=== PATIENT | female | born 1990 | race Caucasian/White ===

== ENCOUNTER 2016-05-09 16:13 | Inpatient (IN) | payer OTHER ==
[2016-05-22] MEDS ORDERED: LIDOCAINE 1% (PRES FREE) 30 ML VIAL ONE (07:38)
[2016-05-22] MEDS ORDERED: IV START KIT ONE (07:38)
[2016-05-22] MEDS ORDERED: MINERAL OIL 25 ML BOT ONE (07:38)
[2016-05-22] MEDS ORDERED: LIDOCAINE Viscous 2% 15 ML UDCUP ONE (07:38)
[2016-05-22] MEDS ORDERED: OXYTOCIN 10 UNITS/ML VIAL ONE (07:38)
[2016-05-22] MEDS ORDERED: OXYTOCIN IN LR 500 ML IV ONE (07:38)
[2016-05-22] MEDS ORDERED: LACTATED RINGERS 1,000 ML ONE (07:38)
[2016-05-22] MEDS ORDERED: PUMP TUBING ONE (07:38)
[2016-05-22] MEDS ORDERED: MISOPROSTOL 25 MCG TABLET SL ONE (07:43)
[2016-05-22 08:28] VITALS: BMI 29.8
[2016-05-22 08:29] LABS: HEMATOCRIT 38.3 % (37.0-47.0); HEMOGLOBIN 13.2 gm/l (12.0-16.0); MEAN CELL VOLUME 93.6 fl (81.0-99.0); MEAN CORPUSCULAR HEMOGLOBIN 32.3 pg (27.0-31.0); MEAN CORPUSCULAR HGB CONC 34.5 g/dl (33.0-37.0); RED CELL DISTRIBUTION WIDTH 13.4 % (11.5-14.5)
--- NOTE | 2016-05-22 09:32 | PCMAN ---
OB Admission Note - History : 1 Term: 0 : 0 Abortions (S&E): 0 Livin Gestational Age (weeks): 41 Days (#/7): 6 Admit Cervical Dilation:: 3.5 Admit Cervical Effacement (%):: 50 Admit Station:: -2 Admit Presentaton:: vertex Membrane Status: Intact Contractions: No Heart Rate:: 130 (moderate variability, pos accels, no decels) Status:: Cat 1 EFW:: 8lbs Summary of Course:: Mihir is a 25 yo presenting today at 41w6d for IOL for post dates Her dating is by 10w6d US that was consistent with her unsure LMP. SHe is supported by her mother and her partner Edward Initial weight was 145 with initial BMI 24.1. TWG this was 29 lbs. This was complicated by: Smoking 5-7 cigarettes a day throughout the as well as marijuana use. Mihir described using marijuana at 15 weeks and was counseled to the risks. A UDS at 28 weeks was positive for MJ use and a UDS at 37 weeks was negative for all substances. Pneumonia at 13 weeks. At her 20 wk anatomy scan a complete placenta previa was noted. Follow up scans at 28 weeks and 36 weeks report that this has resolved completely, with last documented location posterior and 6.4cm from the cervical os. 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 KATHARINA at [id number] was 11.4cm GBS positive at 36 weeks PMH: Asthma - occasionally uses inhaler, last use was during bout of Pneumonia. Rh negative status OB Hx: non-contributory Medications: vits, last dose last night Allergies: NKDA - Labs Blood Type: O (-) negative Rubella Status: Immune GBS Status: Positive Abnormal Labs: None, Urine Toxicology Positive, Other Other Labs:: UDS at 28 wks pos for marijuana UDS neg at 37 wks - Review of Systems Complete ROS is negative. She denies, LOF, contractions and vaginal bleeding. - Physical Exam Psych/Mental Status: Mood/Affect Appropriate, Judgment/Insight Intact Neurological: Grossly Intact, Alert, Oriented x 4 HEENT: Atraumatic Lungs: Clear to Auscultation Bilaterally, Normal Air Movement Cardiovascular: Regular Rate and Rhythm, Normal S1, Normal S2 Abdomen: Other (EFW 8lbs, back on maternal right, vertex confirmed with US.) Genitourinary: Normal Female Genitalia Rectal Exam: Deferred Extremities: Full ROM, Normal Pulses Skin: Normal Color - Problems (1) Post term at 41 weeks gestation Status: Acute Code: O48.0 Assessment/Plan: A: 25yo at 41w6d Not in labor Fetus Cat 1 Membranes Intact Maternal smoking Hx marijuana use GBS positive Asthma Pilonidal cyst Painting score 7 P: Admit for IOL IV access obtained for PCN prophylaxis CBC, RPR (per CDC guidelines), repeat UDS Pt desires unmedicated . Discussed options of initiating labor with Pitocin or with misoprostol. Pt desires to try one round of miso followed by Pitocin augmentaion if necessary. Plans to order breakfast and initiate 25mcg SL miso. Will use ambulation, position changes, ball to stimulate labor contracions. PCN prophylaxis to be initiated at the onset of active labor or SROM. Recheck in 4 hours or as clinically indicated.
[2016-05-22 12:48] LABS: AMPHETAMINES/METHAMPHETAMINES NEGATIVE (NEGATIVE); COCAINE NEGATIVE (NEGATIVE); MARIJUANA NEGATIVE (NEGATIVE); METHADONE NEGATIVE (NEGATIVE); OPIATES NEGATIVE (NEGATIVE); TRICYCLIC ANTIDEPRESSANTS NEGATIVE (NEGATIVE)
[2016-05-22] MEDS ORDERED: OXYTOCIN IN LR 500 ML IV PRN (13:27)
[2016-05-22] MEDS ORDERED: LACTATED RINGERS 1,000 ML IV SCH (13:30)
--- NOTE | 2016-05-22 13:37 | PDOC36 ---
Provider Note Subject: Labor Progress Note Note: S: Mihir has not been feeling the contractions that have registered on the monitor. She is eager for labor to kick in. She is hungry and has just ordered lunch O: VS BP 104/71 P85 RR18 T36.6C BSL 130 moderate variablilty, pos accels, neg decels Ctx q 2-6 mins, mild to moderate by palpation, lasting 60-120 sec SVE 4/75%/-2 Painting Score 8 A: undelivered IUP at 41w6d IOL for post-dates GBS pos Intact membranes Fetus Cat 1 Not in labor Appropriate for oxytocin induction P: Mihir will eat lunch and then agrees to begin oxytocin induction of labor Oxytocin administration per protocol until adequate labor pattern established Will begin PCN prophylaxis with ROM or active labor cEFM per protocol PO hydration Continued ambulation and distraction while in latent labor Recheck in 4 hours or when clinically indicated Anticipate active labor and
[2016-05-22] MEDS ORDERED: PENICILLIN G POTASSIUM 5 MMU in NS 0.9% (MINI-BAG PLUS) 100 ML IV ONE (15:24)
[2016-05-22] MEDS ORDERED: NS 0.9% (MINI-BAG PLUS) 100 ML IV ONE (15:37)
[2016-05-22] MEDS ORDERED: PENICILLIN G POTASSIUM 5 MMU VIAL ONE (15:37)
--- NOTE | 2016-05-22 16:09 | PDOC36 ---
Provider Note Subject: Labor Progress Note Note: S: Mihir is working hard, breathing through each contraction. She is feeling pressure in her lower back and getting support from Edward and her mother. She states that they are much more painful now and coming much more closely. O: VS BP 128/79 RR 20 T 36.5C P 85bpm BSL 135 moderate variability, pos accels, no decels Ctx q 2-5 mins lasting 60-100 sec, palpating moderate to strong Intact membranes PCN prophylaxis started x1 SVE deferred Pitocin infusing at 1mU A: Active Labor GBS pos x1 dose PCN BOWI Fetus Cat 1 Afebrile P: Continue to labor in the tub and continued hands on CNM, RN and family support D/C oxytocin augmentation to see if labor will continue on its own, will reinstate oxytocin if adequate labor pattern not maintained. IA per protocol when oxytocin is not infusing Recheck in 2-4 hours or when clinically indicated PO fluids to maintain hydration PCN prophylaxis per protocol Anticipate
--- NOTE | 2016-05-22 18:43 | PDOC36 ---
Provider Note Subject: Progress Note Note: S/ Mihir is laying on her left side, breathing through her contractions. She was last checked at 16:48 and was 7/100/-2 and intact. Has had one dose of PCN for GBS positive. Her contractions have spaced out after her pitocin was switched off at 16:10, when they were every 1-2 mins. Family are in the room and very supportive. Her is rubbing her back. Mihir has no questions at this time. Coping well. O/ SVE at 16:48 7/100/-2 Intact FHR 120, Accels, variables, moderate variability Ctxs every 5-6 mins, moderate to palpation GBS Positive with 1 dose of PCN infused at 15:40 Afebrile A/ at 41 weeks and 6 days Induction of labor with miso and pitocin Active labor Cat 1 and 2 FHR P/ Desires unmedicated labor Re-evaluate need for pitocin after next cervical exam Consider AROM Support through contractions with position changes and water immersion Anticipate vaginal
[2016-05-22] MEDS ORDERED: PENICILLIN G 3 MIL UNIT PREMIX 50 ML IV ONE ×2 (19:02→23:23)
[2016-05-22] MEDS ORDERED: PENICILLIN G 3 MIL UNIT PREMIX 3 MMU in Premix (D5W) 50 ml 1 EACH IV SCH (19:30)
--- NOTE | 2016-05-22 21:11 | PDOC36 ---
Provider Note Subject: Progress Note Note: S/ Mihir has been on her hands and knees in the tub for the last hour. Breathing well through her contractions. She continues to be unmedicated and saying she cannot do this anymore. Reassured and supported she is doing well and making progress. She requested to get out of the tub and we opted to check her. There was a thought she may have SROM'd at 7pm, however, her exam revealed a bulging bag around the baby. O/ SVE - Complete/100/-1 Bulging bag LOT Asynclitic Compound hand felt by the face Afebrile GBS positive and second dose of PCN infused FHR by IA 150, No variables heard Ctxs every 3-5 mins A/ Active labor Complete Coping well GBS positive P/ Continue to support Mihir through ctxs Wait for SROM to occur due to position
[2016-05-23] MEDS ORDERED: FENTANYL 5 ML ONE ×2 (00:37→00:58)
[2016-05-23] MEDS ORDERED: PROPOFOL 20 ML IV ONE ×2 (00:37→00:38)
[2016-05-23] MEDS ORDERED: SUCCINYLCHOLINE CHL 20 MG/ML DOSE ONE (00:38)
[2016-05-23] MEDS ORDERED: OXYTOCIN 10 UNITS/ML VIAL ONE ×5 (00:38→00:43)
[2016-05-23] MEDS ORDERED: CEFAZOLIN SODIUM 1,000 MG VIAL ONE (00:38)
[2016-05-23] MEDS ORDERED: LIDOCAINE 2% (PRES FREE) 5 ML VIAL ONE (00:38)
[2016-05-23] MEDS ORDERED: DEXAMETHASONE SOD PHOS 4 MG/1 ML VIAL ONE (00:50)
[2016-05-23] MEDS ORDERED: ONDANSETRON 4 MG/2ML 2 ML VIAL ONE (00:50)
[2016-05-23] MEDS ORDERED: HYDROMORPHONE HCL 2 MG/ML SYRINGE ONE (01:11)
[2016-05-23] MEDS ORDERED: KETOROLAC TROMETHAMINE 30 MG/ML 1 ML VIAL ONE (01:20)
[2016-05-23] MEDS ORDERED: FENTANYL 100 MCG/2 ML VIAL ONE (01:56)
[2016-05-23] MEDS ORDERED: NALOXONE HCL 0.4 MG/ML VIAL IV PRN ×2 (02:21→02:45)
[2016-05-23] MEDS ORDERED: OXYCODONE HCL 5 MG TABLET PO PRN (02:24)
[2016-05-23] MEDS ORDERED: DIPHTH,PERTUSS(ACELL),TET VAC 0.5 ML VIAL IM V ONE (02:24)
[2016-05-23] MEDS ORDERED: MEASLES,MUMPS&RUBELLA VACCINE 0.5 ML VIAL SUB-Q V ONE (02:24)
[2016-05-23] MEDS ORDERED: LANOLIN 50 APPLIC/7G TUBE TP PRN (02:24)
--- NOTE | 2016-05-23 02:24 | PCMDEL ---
Delivery Note - Delivery Delivery (Date): 05/23/16 Delivery (Time): 00:36 (With use of a vacuum) Infant Gender: Male Presentation: Cephalic Position: Face (Mentum Posterior) Operative Delivery:: Vacuum Umbilical Cord: 3 Vessel Delayed Cord Clamping:: < 1 min 1 Minute Total: 8 5 Minute Total: 8 Placenta:: Intact EBL:: 1000 Perineum:: N/A Anesthesia/Meds:: General Comments:: Vaginal Delivery Note: Stage I: Patient is a 25 year-old with an [place] of 05/09/16 who presents to L&D at 42 weeks and 0 days gestation. Her care has been complicated by post- dates and use of Marijuana. Her GBS screen was Positive. Penicillin was used for GBS prophylaxis. The patient was admitted on 05/22/16 07:06. Membranes ruptured on 05/22/16 at 22:53 for clear fluid. Active labor progressed well after one dose of miso and pitocin augmentation. Pitocin was turned off and Mihir continued to progress on her own. She was able to tolerate labor unmedicated with use of position change and water. She was complete at 21:57 with a bulging bag. There was a hand noted up by the face at that time and the position felt LOT. She started to have an urge to push and while in hands and knees she started to do this. At 22:53 she SROM'd for clear fluid. The head came down into the pelvis and she pushed 2-3 more times. At this point her urge to push had diminished, so she stopped and requested to get back in the tub. She was complete/100/-1. Due to her having had a couple of variables the EFM was left in place. At approximately 23:45 I was called to the room for a FHR in the 60's. Patient was on her right side with oxygen in place. Pt was checked and upon exam a face presentation was noted, as my fingers entered the baby's mouth and a nose was palpated. The FHR was not returning to a baseline of 120-130's and therefore Dr. Gomes and Anesthesia were called, along with the OR crew. Prior to the physician's arrival the patient was moved to the OR in preparation for a possible . Upon arrival of Dr. Eliseo he confirmed a mentum posterior presentation. Mihir was prepared for a and gave verbal consent. In the OR the FHR was 122 and stable. Induction/augmentation agents: Miso, Pitocin, and SROM. Anesthesia: General Stage II: A male baby was born at 00:36 via primary . A vacuum was applied to his head in order to deliver. He has a small swollen area from this and facial swelling. He is able to open his eyes. He had a lusty cry at . Birthweight was 8lbs- 4 ounces pending. scores were 8 at one minute and 8 at five minutes. RT and User Interface Engineer were present. Stage III: At the conclusion of the delivery the sponge and the needle count were correct. Estimated blood was 1000 ml. Uterus firmed up nicely. Cord blood gases with PH of 7.25 Complications: Mentum Posterior presentation, GBS positive
[2016-05-23] MEDS ORDERED: HYDROMORPHONE PCA (MONOJECT) 12 MG/30 ML INJ.SOLN IV SCH (02:30)
[2016-05-23] MEDS ORDERED: ONDANSETRON 4 MG/2ML 2 ML VIAL IV PRN (02:45)
[2016-05-23] MEDS ORDERED: NALBUPHINE HCL 20 MG/ML AMP IV PRN (02:45)
[2016-05-23] MEDS ORDERED: DIPHENHYDRAMINE HCL 50 MG/1 ML VIAL IV PRN (02:45)
[2016-05-23] MEDS ORDERED: MORPHINE SULFATE 10 MG/ML SYRINGE IV PRN (02:45)
[2016-05-23] MEDS ORDERED: PROMETHAZINE HCL 25 MG/ML VIAL IM PRN (02:45)
[2016-05-23] MEDS ORDERED: MORPHINE SULFATE 4 MG/ML SYRINGE IV PRN (02:45)
[2016-05-23] MEDS ORDERED: MORPHINE SULFATE 2 MG/ML SYRINGE IV PRN (02:45)
[2016-05-23] MEDS ORDERED: HYDROMORPHONE HCL 2 MG/ML SYRINGE IV PRN (02:45)
[2016-05-23] MEDS ORDERED: HYDROMORPHONE HCL 1 MG/ML SYRINGE IV PRN (02:45)
[2016-05-23] MEDS ORDERED: EPHEDRINE SULFATE 50 MG/ML 1ML VIAL IV PRN (02:45)
[2016-05-23] MEDS ORDERED: PCA ADMINISTRATION KIT ONE (02:50)
[2016-05-23] MEDS ORDERED: PNEUMOCOCCAL 23-VAL P-SAC VAC 0.5 ML VIAL IM V ONE (03:05)
[2016-05-23] MEDS ORDERED: FLU VACC 2016-17 (36MO-64Y)/PF 60 MCG/0.5 ML SYRINGE IM V ONE (03:05)
[2016-05-23] MEDS ORDERED: EtCO2 Monitoring Set ONE (03:09)
[2016-05-23] MEDS ORDERED: PUMP TUBING ONE (03:28)
[2016-05-23] MEDS: LACTATED RINGERS 1,000 ML IV SCH ×2 (03:48→12:06)
[2016-05-23] MEDS ORDERED: HYDROMORPHONE HCL 2 MG/ML SYRINGE IV ONE (04:44)
[2016-05-23 06:03] LABS: HEMOGLOBIN 10.8 gm/l (12.0-16.0); MEAN CELL VOLUME 94.7 fl (81.0-99.0); MEAN CORPUSCULAR HGB CONC 33.8 g/dl (33.0-37.0); RED CELL DISTRIBUTION WIDTH 13.2 % (11.5-14.5)
[2016-05-23] MEDS: KETOROLAC TROMETHAMINE 30 MG/ML 1 ML VIAL IV PRN ×2 (07:45→13:41)
--- NOTE | 2016-05-23 10:43 | OP ---
MINERVA GARCIA [id number] DATE OF : 1990 DATE OF OPERATION: 05/23/2016 PREOPERATIVE DIAGNOSES: 1. Terminal bradycardia with heart rate in the 60s to 70s. 2. face presentation suspected mentum posterior, high station. POSTOPERATIVE DIAGNOSES: 1. Terminal bradycardia with heart rate in the 60s to 70s. 2. face presentation suspected mentum posterior high station. 3. Rotation intraoperative from mentum posterior to anterior mentum position with assistance using the [employer] vacuum extractor. PERSONNEL: Johnathan Gomes M.D. METAL RIVETING MACHINE OPERATOR: IRMA Huffman ANESTHESIA: General. ESTIMATED BLOOD LOSS: 1000 mL. COMPLICATIONS: NONE. PROCEDURE DONE: Primary low transverse section. DESCRIPTION OF PROCEDURE: I was called around midnight for a patient of Marii Lamar who was inducing a patient for postdate. It was noted that the face was the presenting position after spontaneous rupture of membranes. This was associated with a bradycardia lasting several minutes in the 60s and 70s. She was repositioned and rechecked. I was called and arrived, at this time the patient was brought to the operating room and made ready for a rapid delivery of the given the bradycardia present. I examined the patient and felt that fetus was a mentum posterior, high in the canal (I could feel the nasal ridge and the nostrils in the posterior orientation. It was at a fairly high station, and patient was briefly counselled regarding the necessity of proceeding with section. All the arrangements were now made for a section. Pittman catheter was inserted. She was placed in a slight lateral tilt. She was prepped and draped and we awaited the arrival of anesthesia in order to do a rapid sequence general anesthesia. I initiated the procedure using sharp dissection including the scalpel, I dissected through the tissues, split the muscles, opened the peritoneum, and scored through the bladder flap off the inferior edge of the uterus. I made a sharp incision in the uterus and then extended laterally with my fingers. The infant at this time was now slightly in a lateral anterior mentum position but it was significantly deflexed making difficult delivery. In order to get some flexion given the space of the incision, it was necessary to place the Kiwi on the baby's upper brow. This was done, but I was unable to get sufficient flexion, so I reapplied behind the anterior fontanelle-closer to the "sweet spot". I was finally able to get it into a suitable position posteriorly enough so that with traction, I could now effect sufficient flexion of the head in order to get it up and above the symphysis pubis for delivery. The rest of the delivery was then easily accomplished once the head was brought up above the level of the pubis. Shoulders were easily delivered. The baby actually had good tone, grimace, made initial effort of crying, was suctioned. There was no meconium. Baby was vigorous, and cord was milked, and then clamped leaving a fairly long segment of it for pediatric intervention if need be. The baby was brought to the resuscitating table and did well, was given Apgars of 8 and 8, and the cord pH was reported at 7.25. Cord bloods were obtained Placenta was then removed by just squeezing the uterus and stimulating it, and traction. It was intact and unremarkable. (family requested they keep the placenta. I was able to find the lateral corners on each side, identify them clearly away from any major arterial supply, and then closed them with running lock suture of 0-Vicryl. A second imbricating layer was then introduced with good latter day. It was necessary to cut some of the rectus muscles in order to free up additional space intraoperatively, and so these were inspected. The patient's left rectus muscle was left un-sutured. There was only a small deficit in it. The right appeared to be slightly oozing, and so it was eventually sutured with a 0-Vicryl suture. This did create good hemostasis at this point. Inspection of the pelvis was methodical, and careful so that we did not neglect any potential bleeding postoperatively. The pelvis was dry at this point, and then closed the peritoneum. The fascia was then closed corner to corner with 1 Vicryl unlocked suture. The subcutaneous tissues were irrigated and then closed with a 3-0 plain corner to corner and the skin was reapproximated on a Pascual needle with a subcuticular of 4-0 Vicryl. Sterile strips were then applied on the skin in addition. Patient did receive antibiotic intraoperatively. Estimated blood loss was 1000 mL. She tolerated the anesthesia well, and postoperatively appeared to be awake and rapidly recovering. MINDY/peyton
--- NOTE | 2016-05-23 11:05 | PDOC36 ---
Provider Note Subject: POD#1 Note: Had stat c-sec during night with General anesthesia. 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 H &H noted. Expect it will drop on f/u in am. Wound dry, abd soft. Probably home on Tuesday
[2016-05-23] MEDS: OXYCODONE/ACETAMINOPHEN 5/325 MG TABLET PO PRN ×3 (13:39→21:40)
[2016-05-23] MEDS ORDERED: RHOGAM 300 MCG SYRINGE IV ONE (14:32)
[2016-05-23] MEDS: IBUPROFEN 800 MG TABLET PO PRN (21:40)
[2016-05-23] MEDS: DOCUSATE SODIUM 100 MG CAPSULE PO SCH (21:40)
[2016-05-24] MEDS ORDERED: ONDANSETRON 4 MG/2ML 2 ML VIAL IV PRN (01:00)
[2016-05-24] MEDS ORDERED: DIPHENHYDRAMINE HCL 50 MG/1 ML VIAL IV PRN (01:00)
[2016-05-24] MEDS ORDERED: PROMETHAZINE HCL 25 MG/ML VIAL IM PRN (01:00)
[2016-05-24] MEDS ORDERED: DIPHENHYDRAMINE HCL 25 MG CAPSULE PO PRN (01:00)
[2016-05-24] MEDS: OXYCODONE/ACETAMINOPHEN 5/325 MG TABLET PO PRN ×5 (01:34→23:24)
[2016-05-24] MEDS: IBUPROFEN 800 MG TABLET PO PRN ×3 (04:28→19:28)
--- NOTE | 2016-05-24 06:42 | PDOC44 ---
- Subjective Day: 1 Reports Pain Tolerable, Reports - Objective Temp Pulse Resp BP Pulse Ox 98.4 F 92 16 116/61 95 05/24/16 01:37 05/24/16 04:33 05/24/16 01:37 05/24/16 04:33 05/23/16 13:00 Current Medications Generic Name Dose Route Start Last Admin Trade Name Freq PRN Reason Stop Dose Admin Diphenhydramine HCl 25 mg 05/24/16 01:00 Benadryl PO Q6H PRN Itching (Mild/Moderate) Diphenhydramine HCl 25 mg 05/24/16 01:00 05/23/16 05:14 Benadryl IV 25 mg Q6H PRN Administration Itching (Severe) Docusate Sodium 100 mg 05/23/16 09:00 05/23/16 21:40 Colace PO 100 mg BID MALIK Administration Emollient Ointment 1 applic 05/23/16 02:24 Asn-D-Aftnla TP PRN PRN sore nipples Lactated Ringer's 1,000 mls @ 125 mls/hr 05/23/16 02:24 05/23/16 12:06 Lactated Ringers IV 125 mls/hr .Q8H MALIK Administration Ibuprofen 800 mg 05/23/16 02:24 05/24/16 04:28 Motrin PO 800 mg Q6H PRN Administration Pain Ketorolac Tromethamine 30 mg 05/23/16 02:24 05/23/16 13:41 Toradol IV 30 mg Q6H PRN Administration Pain (Mild/Moderate) Multivi/Iron Carb/Fe Sulf/FA/Prenat 1 tab 05/23/16 09:00 Plus PO DAILY MALIK Naloxone HCl 0.04 - 0.4 mg 05/23/16 02:21 Narcan IV Q5M PRN Respiratory Depression Ondansetron HCl 4 mg 05/24/16 01:00 Zofran IV Q6H PRN Nausea/Vomiting Oxycodone HCl 5 - 10 mg 05/23/16 02:24 Roxicodone PO Q3H PRN Pain (Severe) Oxycodone/Acetaminophen 1 - 2 tab 05/23/16 02:24 05/24/16 05:19 Percocet 5/325 PO 2 tab Q4H PRN Administration Pain (Moderate) Promethazine HCl 25 mg 05/24/16 01:00 Phenergan IM Q6H PRN Nausea/Vomiting Sodium Chloride 10 ml 05/23/16 02:24 05/24/16 05:19 Normal Saline 10ml Flush IV 10 ml PRN PRN Administration IV Flush Sodium Chloride 10 ml 05/23/16 09:00 Normal Saline 10ml Flush IV Q8HR AMLIK - Physical Exam General: Afebrile Psych/Mental Status: Mood/Affect Appropriate, Judgment/Insight Intact Lungs: Normal Air Movement Breast: Soft, Skin intact Fundus: Firm, Firm with Massage Skin: Normal Color, Warm Wound 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
[2016-05-24] MEDS: DOCUSATE SODIUM 100 MG CAPSULE PO SCH ×4 (06:59→21:04)
[2016-05-24] MEDS: LACTATED RINGERS 1,000 ML IV SCH (07:00)
[2016-05-24] MEDS: PRENATAL VIT/FE FUMARATE/FA 1 TABLET PO SCH ×2 (07:00→07:31)
[2016-05-24 07:22] LABS: HEMATOCRIT 24.6 % (37.0-47.0); HEMOGLOBIN 8.3 gm/l (12.0-16.0); MEAN CELL VOLUME 96.1 fl (81.0-99.0); MEAN CORPUSCULAR HEMOGLOBIN 32.4 pg (27.0-31.0); MEAN CORPUSCULAR HGB CONC 33.7 g/dl (33.0-37.0); RED CELL DISTRIBUTION WIDTH 13.5 % (11.5-14.5)
--- NOTE | 2016-05-24 07:28 | PDOC44 ---
- Subjective Day: 1 Reports Flatus, Reports Pain Tolerable, Reports , Reports Lochia Light, Reports Tolerating Regular Diet, Reports Other (has ambulated without dizziness.) - Objective Temp Pulse Resp BP Pulse Ox 98.3 F 76 18 104/56 95 05/24/16 07:19 05/24/16 07:19 05/24/16 07:19 05/24/16 07:19 05/23/16 13:00 Lab Results 05/24/16 06:15 WBC 13.9 H RBC 2.56 L Hgb 8.3 L D Hct 24.6 L Plt Count 176 05/24/16 06:15 MCH 32.4 H Current Medications Generic Name Dose Route Start Last Admin Trade Name Freq PRN Reason Stop Dose Admin Diphenhydramine HCl 25 mg 05/24/16 01:00 Benadryl PO Q6H PRN Itching (Mild/Moderate) Diphenhydramine HCl 25 mg 05/24/16 01:00 05/23/16 05:14 Benadryl IV 25 mg Q6H PRN Administration Itching (Severe) Docusate Sodium 100 mg 05/23/16 09:00 05/24/16 06:59 Colace PO Not Given BID [facility] Emollient Ointment 1 applic 05/23/16 02:24 Qvv-A-Pidxjy TP PRN PRN sore nipples Lactated Ringer's 1,000 mls @ 125 mls/hr 05/23/16 02:24 05/24/16 07:00 Lactated Ringers IV Not Given .Q8H MALIK Ibuprofen 800 mg 05/23/16 02:24 05/24/16 04:28 Motrin PO 800 mg Q6H PRN Administration Pain Ketorolac Tromethamine 30 mg 05/23/16 02:24 05/23/16 13:41 Toradol IV 30 mg Q6H PRN Administration Pain (Mild/Moderate) Multivi/Iron Carb/Fe Sulf/FA/Prenat 1 tab 05/23/16 09:00 05/24/16 07:00 Plus PO Not Given DAILY MALIK Naloxone HCl 0.04 - 0.4 mg 05/23/16 02:21 Narcan IV Q5M PRN Respiratory Depression Ondansetron HCl 4 mg 05/24/16 01:00 Zofran IV Q6H PRN Nausea/Vomiting Oxycodone HCl 5 - 10 mg 05/23/16 02:24 Roxicodone PO Q3H PRN Pain (Severe) Oxycodone/Acetaminophen 1 - 2 tab 05/23/16 02:24 05/24/16 05:19 Percocet 5/325 PO 2 tab Q4H PRN Administration Pain (Moderate) Promethazine HCl 25 mg 05/24/16 01:00 Phenergan IM Q6H PRN Nausea/Vomiting Sodium Chloride 10 ml 05/23/16 02:24 05/24/16 05:19 Normal Saline 10ml Flush IV 10 ml PRN PRN Administration IV Flush Sodium Chloride 10 ml 05/23/16 09:00 05/24/16 06:59 Normal Saline 10ml Flush IV Not Given Q8HR MALIK - Physical Exam General: Afebrile, No Acute Distress Fundus: Firm, Below Umbilicus Abdomen: Normal Bowel Sounds, No Tenderness, No Distention Wound 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 hgb=8.3 - however no dizziness. no transfusion at this time.)
[2016-05-25] MEDS: IBUPROFEN 800 MG TABLET PO PRN ×4 (02:02→22:22)
[2016-05-25] MEDS: OXYCODONE/ACETAMINOPHEN 5/325 MG TABLET PO PRN ×4 (04:54→20:12)
[2016-05-25] MEDS: DOCUSATE SODIUM 100 MG CAPSULE PO SCH ×2 (09:13→20:13)
--- NOTE | 2016-05-25 10:15 | PDOC44 ---
- Subjective Day: 2 (She was doing better yesterday. More sore today. Struggling with .) Reports Flatus, Reports Pain Tolerable - Objective Temp Pulse Resp BP Pulse Ox 98.4 F 82 18 118/69 95 05/25/16 08:50 05/25/16 08:50 05/25/16 08:50 05/25/16 08:50 05/23/16 13:00 Current Medications Generic Name Dose Route Start Last Admin Trade Name Freq PRN Reason Stop Dose Admin Diphenhydramine HCl 25 mg 05/24/16 01:00 Benadryl PO Q6H PRN Itching (Mild/Moderate) Diphenhydramine HCl 25 mg 05/24/16 01:00 05/23/16 05:14 Benadryl IV 25 mg Q6H PRN Administration Itching (Severe) Docusate Sodium 100 mg 05/23/16 09:00 05/25/16 09:13 Colace PO 100 mg BID MALIK Administration Emollient Ointment 1 applic 05/23/16 02:24 05/24/16 07:45 Cmg-U-Xulswr TP 1 tube PRN PRN Administration sore nipples Lactated Ringer's 1,000 mls @ 125 mls/hr 05/23/16 02:24 05/24/16 07:00 Lactated Ringers IV Not Given .Q8H MALIK Ibuprofen 800 mg 05/23/16 02:24 05/25/16 08:47 Motrin PO 800 mg Q6H PRN Administration Pain Ketorolac Tromethamine 30 mg 05/23/16 02:24 05/23/16 13:41 Toradol IV 30 mg Q6H PRN Administration Pain (Mild/Moderate) Multivi/Iron Carb/Fe Sulf/FA/Prenat 1 tab 05/23/16 09:00 05/24/16 07:31 Plus PO 1 tab DAILY MALIK Administration Naloxone HCl 0.04 - 0.4 mg 05/23/16 02:21 Narcan IV Q5M PRN Respiratory Depression Ondansetron HCl 4 mg 05/24/16 01:00 Zofran IV Q6H PRN Nausea/Vomiting Oxycodone HCl 5 - 10 mg 05/23/16 02:24 Roxicodone PO Q3H PRN Pain (Severe) Oxycodone/Acetaminophen 1 - 2 tab 05/23/16 02:24 05/25/16 09:12 Percocet 5/325 PO 2 tab Q4H PRN Administration Pain (Moderate) Promethazine HCl 25 mg 05/24/16 01:00 Phenergan IM Q6H PRN Nausea/Vomiting Sodium Chloride 10 ml 05/23/16 02:24 05/24/16 16:43 Normal Saline 10ml Flush IV 10 ml PRN PRN Administration IV Flush Sodium Chloride 10 ml 05/23/16 09:00 05/24/16 06:59 Normal Saline 10ml Flush IV Not Given Q8HR MALIK - Physical Exam Psych/Mental Status: Mood/Affect Appropriate, Bonding Well HEENT: Atraumatic Lungs: Clear to Auscultation Bilaterally Cardiovascular: Regular Rate and Rhythm Fundus: Firm Abdomen: Normal Bowel Sounds, No Distention Lochia: Moderate Skin: Normal Color, Warm 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 Incision looks good.) - Problems:Assessment/Plan (1) delivery delivered Status: Acute Assessment/Plan: Normal post-op c/section. (2) Face presentation of fetus Status: Acute Disposition: Anticipate DC Home Tomorrow
[2016-05-25] MEDS: PRENATAL VIT/FE FUMARATE/FA 1 TABLET PO SCH (16:17)
[2016-05-26] MEDS: OXYCODONE/ACETAMINOPHEN 5/325 MG TABLET PO PRN ×3 (00:15→10:14)
[2016-05-26] MEDS: IBUPROFEN 800 MG TABLET PO PRN (05:30)
--- NOTE | 2016-05-26 07:39 | PDOC39B ---
Hospital Course: ADMIT DATE: 05/22/16 DISCHARGE DATE: 05/26/16 ADMISSION DIAGNOSES: postterm , induction of labor PROCEDURES: primary low transverse c/section HISTORY OF PRESENT ILLNESS: 25 year old G1 T0 L0 at 42 weeks 0 days presenting with induction of labor. HOSPITAL COURSE: The patient progressed, however fetus had a terminal bradycardia and was noted to have face presentation. An emergent primary c/ section was performed. Baby female, 8lbs 4oz, 8/9 apgars delivered. Patient had an uncomplicated postoperative course. Postoperative hgb=8.3, however asymptomatic. By day of discharge the patient is ambulating, eating, voiding, and passing flatus without difficulty. Pain is controlled and lochia is appropriate. She is [] Patient is discharged on prescription for iron, percocet, and motrin. She will follow up 2 weeks. - Physical Exam Vital Signs: Temp Pulse Resp BP Pulse Ox 98.3 F 83 16 132/70 95 05/26/16 02:37 05/26/16 02:37 05/26/16 02:37 05/26/16 02:37 05/23/16 13:00 - Discharge Plan Additional Instructions: [facility]ABIES clinic appt on 05/28/16, at 3pm. Bring baby ready to nurse. Follow-Up: TIARA Dudley [Outside]
[2016-05-26 08:41] VITALS: BP 105/63
[2016-05-26] MEDS: DOCUSATE SODIUM 100 MG CAPSULE PO SCH (10:04)
[2016-05-26] MEDS: PRENATAL VIT/FE FUMARATE/FA 1 TABLET PO SCH (10:04)
[2016-05-26] MEDS ORDERED: PNEUMOCOCCAL 23-VAL P-SAC VAC 0.5 ML VIAL IM V ONE (10:15)
== END 2016-05-26 11:30 | disposition home or self-care (01) | DRG 765 ==
LOC: EDSTATUS 16:13 → FBC 05-22 07:06
PROVIDERS: ADMIT Obstetrics & Gynecology; ATTEND Advanced Practice Midwife
PROC: 3E0P7GC Introduction of Other Therapeutic Substance into Female Reproductive, Via Natural or Artificial Opening (ICD-10-PCS; 2016-05-22)
PROC: 3E033VJ Introduction of Other Hormone into Peripheral Vein, Percutaneous Approach (ICD-10-PCS; 2016-05-22)
PROC: 4A1H74Z Monitoring of Products of Conception, Cardiac Electrical Activity, Via Natural or Artificial Opening (ICD-10-PCS; 2016-05-22)
PROC: 10D00Z1 Extraction of Products of Conception, Low, Open Approach (ICD-10-PCS; principal; 2016-05-23)
PROC: 10D07Z6 Extraction of Products of Conception, Vacuum, Via Natural or Artificial Opening (ICD-10-PCS; 2016-05-23)
DX: O48.0 Post-term pregnancy (principal); O99.324 Drug use complicating childbirth; F12.20 Cannabis dependence, uncomplicated; O99.334 Smoking (tobacco) complicating childbirth; F17.210 Nicotine dependence, cigarettes, uncomplicated; O99.52 Diseases of the respiratory system complicating childbirth; J45.909 Unspecified asthma, uncomplicated; O99.824 Streptococcus B carrier state complicating childbirth; O75.89 Other specified complications of labor and delivery; L05.91 Pilonidal cyst without abscess; O76 Abnormality in fetal heart rate and rhythm complicating labor and delivery; O66.5 Attempted application of vacuum extractor and forceps; O99.02 Anemia complicating childbirth; D62 Acute posthemorrhagic anemia; Z3A.42 42 weeks gestation of pregnancy; Z37.0 Single live birth

== ENCOUNTER 2016-05-28 15:00 | Outpatient (CLI) | payer OTHER | END 2016-05-28 15:01 | disposition home or self-care (01) | LOC: BABIESSH 15:00 | PROVIDERS: ATTEND Advanced Practice Midwife | DX: Z39.1 Encounter for care and examination of lactating mother (principal) ==

== ENCOUNTER 2016-06-02 15:49 | Outpatient (CLI) | payer OTHER | END 2016-06-02 15:50 | disposition home or self-care (01) | LOC: BABIESSH 15:49 | PROVIDERS: ATTEND Advanced Practice Midwife | DX: Z39.1 Encounter for care and examination of lactating mother (principal) ==

== ENCOUNTER 2016-06-16 12:57 | Outpatient (CLI) | payer OTHER | END 2016-06-16 12:58 | disposition home or self-care (01) | LOC: BABIESSH 12:57 | PROVIDERS: ATTEND Obstetrics & Gynecology | DX: Z39.1 Encounter for care and examination of lactating mother (principal) ==

== ENCOUNTER 2016-06-29 14:06 | Outpatient (CLI) | payer OTHER | END 2016-06-29 14:07 | disposition home or self-care (01) | LOC: BABIESSH 14:06 | PROVIDERS: ATTEND Advanced Practice Midwife | DX: Z39.1 Encounter for care and examination of lactating mother (principal) ==

== ENCOUNTER 2016-07-05 14:00 | Outpatient (CLI) | payer OTHER | END 2016-07-05 14:01 | disposition home or self-care (01) | LOC: BABIESSH 14:00 | PROVIDERS: ATTEND Family Medicine | DX: O92.79 Other disorders of lactation (principal) ==